=== PATIENT | male | born 1995 | race Caucasian/White ===

== ENCOUNTER 2019-09-29 08:24 | Emergency (ER) | payer OTHER, SELFPAY ==
[2019-09-29 08:27] VITALS: BP 112/69; PULSE 90; RESP 18; TEMP 36.3; O2SAT 99
--- NOTE | 2019-09-29 08:31 | ED.BACK ---
HPI - Back Pain/Injury General Chief Complaint: Back Pain/Injury Stated Complaint: back pain Time Seen by Provider: 09/29/19 08:31 History of Present Illness HPI Narrative: Low back pain x1week. Located in the midline extending into the right paraspinal muscles and buttock. Started while lifting a heavy object and he felt a pop. He has been taking ibuprofen with partial relief. He doesnot want anything else for pain at this time. No fever, urinary symptoms, constipation, weakness, numbness. Related Data Allergies Allergy/AdvReac Type Severity Reaction Status Date / Time No Known Allergies Allergy Unverified 09/29/19 08:30 Review of Systems Review of Systems: All systems reviewed & are unremarkable except as noted in HPI and below [facility] Social History Social History Gender identity (if verbalized by the patient): Male Exam Const: General: healthy appearing, no acute distress and alert Orientation/consciousness: patient oriented x3 HENMT: Head: normal to inspection Neck: Neck: normal visual inspection and no lymphadenopathy Chest: Chest palpation & inspection: no tenderness Resp: Effort & Inspection: normal respiratory effort Auscultation: clear to auscultation bilaterally, no rales, no rhonchi and no wheezes Cardio: Jugular venous distension: no JVD Rate: regular rate Rhythm: regular rhythm Heart sounds: no murmurs GI: Inspection: non-distended GI Palp: Yes Soft to palpation and No Tenderness to palpation present (GI) Back/Spine/Pelvis: Other: Lumbar paraspinal tnederness on the right Skin: General skin exam: normal color Neuro: General: patient oriented x3 and moves all extremities Speech: normal speech Extrem: General: no edema Psych: Appearance: well kempt Affect: normal affect Course Vital Signs Vital signs: Vital Signs Temperature 36.3 C L 09/29/19 08:27 Pulse Rate 90 09/29/19 08:27 Respiratory Rate 18 09/29/19 08:27 Blood Pressure 112/69 09/29/19 08:27 Pulse Oximetry 99 09/29/19 08:27 Temperature 36.3 C L 09/29/19 08:27 Pulse Rate 90 09/29/19 08:27 Respiratory Rate 18 09/29/19 08:27 Blood Pressure 112/69 09/29/19 08:27 Pulse Oximetry 99 09/29/19 08:27 MDM - Back Pain/Injury MDM Narrative Medical decision making narrative: He has no risk factors or red flags for emergent causes of back pain. Medical Records Attestation: I reviewed the patient's medical records. Lab Data Attestation: I reviewed the patient's lab results. Discharge Plan Discharge Clinical Impression: Strain of lumbar region Qualifiers: Encounter type: initial encounter Qualified Code(s): S39.012A - Strain of muscle, fascia and tendon of lower back, initial encounter Patient Disposition: Home, Self-Care Condition: Stable Instructions: Acute Low Back Pain (ED), Lower Back Exercises (ED) Prescriptions: New cyclobenzaprine 10 mg tablet 10 mg PO HS PRN (Reason: muscle spasm) Qty: 20 RF: 0 Follow-up/Referrals: PHYSICIAN,SWATCH CUTTER [Primary Care Provider] - Discharge Date/Time: 09/29/19 09:35
== END 2019-09-29 09:35 | disposition home or self-care (01) ==
PROVIDERS: Emergency Provider Emergency Medicine
DX: S39.012A Strain of muscle, fascia and tendon of lower back, initial encounter (principal); X50.0XXA Overexertion from strenuous movement or load, initial encounter
CPT/HCPCS: 99283